=== PATIENT | male | born 2000 | race Caucasian/White ===

== ENCOUNTER → 2024-06-11 09:28 | Outpatient (REF) | payer BC, SELFPAY ==
[2024-06-11 10:19] LABS: % Basophils 1.2 % (0-2); % Eosinophils 1.8 % (0-6); % Immature Granulocytes 0.3 % (0-0.5); % Lymphocytes 38.5 % (20.5-51.1); % Monocytes 7.2 % (1.7-9.3); Absolute Basophils 0.1 10^3/uL (0-0.2); Absolute Eosinophils 0.1 10^3/uL (0-0.7); Absolute Lymphocytes 2.6 10^3/uL (1.2-3.4); Absolute Monocytes 0.5 10^3/uL (0.1-0.6); Absolute Neutrophils 3.5 10^3/uL (1.4-6.5); Hematocrit 45.5 % (39.0-52.0); Hemoglobin 16.3 g/dL (13.0-18.0); Mean Corp Hgb Conc. 35.8 g/dL (33.0-37.0); Mean Corpuscular Hgb 31.5 pg (27.0-31.0); Mean Corpuscular Volume 87.8 fL (80.0-94.0); Mean Platelet Volume 10.7 fL (7.4-10.4); Nucleated Red Blood Cells % 0 % (-); Platelet Count 220 10^3/uL (130-400); Red Blood Cell Count 5.18 10^6/uL (4.70-6.10); Red Cell Dist. Width 12.4 % (11.5-14.5); White Blood Cell Count 6.9 10^3/uL (4.8-10.8)
[2024-06-11 10:52] LABS: ALT (SGPT) 32 U/L (0-50); AST (SGOT) 30 U/L (17-59); Albumin 5.2 g/dl (3.5-5.0); Alkaline Phosphatase 66 U/L (38-126); Blood Urea Nitrogen 19 mg/dl (9-20); Calcium 10.2 mg/dl (8.4-10.2); Carbon Dioxide 24 mmol/L (22-30); Chloride 101 mmol/L (98-107); Glucose 93 mg/dl (70-99); HDL Cholesterol 44 mg/dl; LDL Cholesterol, Calculated 219 mg/dl; Potassium 4.1 mmol/L (3.5-5.1); Sodium 138 mmol/L (135-145); Total Bilirubin 1.5 mg/dl (0.2-1.3); Total Cholesterol 296 mg/dl (50-199); Total Protein 7.7 g/dl (6.3-8.2); Triglyceride 167 mg/dl (10-149); Very Low Density Lipoprotein 33 mg/dl (0-30); eGFR > 60.00
[2024-06-11 11:11] LABS: Vitamin D, 25-OH*** 20.2 ng/mL (30-80)
[2024-06-11 11:25] LABS: TSH Reflex To Free T4 5.58 uIU/ml (0.47-4.68)
[2024-06-11 11:55] LABS: Free T4 0.81 ng/dl (0.78-2.19)
== END ==
LOC: REG 09:28
PROVIDERS: ATTENDING PHYSICIAN Physician Assistant
DX: J45.20 Mild intermittent asthma, uncomplicated (principal); F90.0 Attention-deficit hyperactivity disorder, predominantly inattentive type; F41.1 Generalized anxiety disorder; R79.89 Other specified abnormal findings of blood chemistry; Z13.0 Encounter for screening for diseases of the blood and blood-forming organs and certain disorders involving the immune mechanism; Z13.220 Encounter for screening for lipoid disorders; Z13.1 Encounter for screening for diabetes mellitus
CPT/HCPCS: 36415; 80053; 80061; 82306; 84439; 84443; 85025

== ENCOUNTER → 2025-05-05 09:23 | Outpatient (REF) | payer BC, SELFPAY ==
[2025-05-05 10:52] LABS: Hematocrit 45.1 % (39.0-52.0); Hemoglobin 15.8 g/dL (13.0-18.0); Mean Corp Hgb Conc. 35.0 g/dL (33.0-37.0); Mean Corpuscular Volume 88.3 fL (80.0-94.0); Nucleated Red Blood Cells % 0 % (-); Platelet Count 220 10^3/uL (130-400); Red Cell Dist. Width 12.5 % (11.5-14.5)
[2025-05-05 10:53] LABS: INR 0.93; PT 13.0 Sec (11.4-14.6)
[2025-05-05 10:54] LABS: APTT 32.3 Sec (23.4-35.0)
[2025-05-11 16:08] LABS: Von Willebrands Factor Antigen 75 % (52-214)
== END ==
LOC: REG 09:23
PROVIDERS: ATTENDING PHYSICIAN Internal Medicine Hematology & Oncology; FAMILY PHYSICIAN Physician Assistant
DX: D68.00 Von Willebrand disease, unspecified (principal)
CPT/HCPCS: 36415; 85025; 85240; 85245; 85246; 85247; 85610; 85730

== ENCOUNTER → 2025-05-25 14:32 | Outpatient (REF) | payer BC, SELFPAY | LOC: CLAB 14:32 | PROVIDERS: ATTENDING PHYSICIAN Otolaryngology | DX: J35.01 Chronic tonsillitis (principal) | CPT/HCPCS: 88304 ==